=== PATIENT | male | born 1950 | race Caucasian/White ===

== ENCOUNTER 2021-05-19 07:37 | Emergency (ER) | payer OTHER ==
--- OUTSIDE RECORDS SUMMARY | 2021-05-19 07:42 | XMS REPORT | Continuity of Care Document ---
:1950 Author Organization [facility] Address [address] [place] [address] Dr. Orozco [address] [place] [id number] Care Team Providers Name Role Phone Unavailable Unavailable Unavailable Problems This patient has no known problems. Allergies, Adverse Reactions, Alerts This patient has no known allergies or adverse reactions. Medications This patient has no known medications. Procedures This patient has no known procedures. Results This patient has no known results.
[2021-05-19 08:13] LABS: Urine Blood Trace-intact (Negative); Urine Glucose Negative (Negative); Urine Protein 1+ (Negative); Urine pH 7.5 (5.0-7.0)
--- NOTE | 2021-05-19 08:43 | RAD REPORT ---
EXAM DESCRIPTION: CT - Stone Protocol - 05/19/2021 8:01 am CLINICAL HISTORY: Flank pain. FLANK PAIN COMPARISON: No comparisons TECHNIQUE: Axial images were obtained without oral or IV contrast. Lack of contrast limits solid org an and vascular assessment. The [id number] spans the entirety of the system partially obscuring uppermost abdomen and lung bases. Coronal reformatted images were obtained and reviewed. All CT scans are performed using dose optimization technique as appropriate and may include automated exposure control or mA/KV adjustment according to patient size. FINDINGS: The lower lung cardoza are clear. Cholecystectomy. Imaged portions of the liver and spleen show no suspicious findings on non-contrast imaging. The panc reas and adrenal glands are normal. No pathologic lymphadenopathy in the abdomen or pelvis. 2 mm calculus is present mid right ureter resulting in mild right hydronephrosis. No left-sided urina ry tract stone or obstructive uropathy. No bowel obstruction, free air, free fluid or abscess. Sigmoid diverticulosis coli is present without diverticulitis.Normal appendix. Mild diffuse lumbar spondylosis is present. Mild enlargement of prostate gland is present. IMPRESSION: 2 mm calculus mid right ureter resulting in mild right hydronephrosis. Sigmoid diverticulosis coli is present without diverticulitis.
--- NOTE | 2021-05-19 08:53 | ER ---
Nurse's Notes [facility] Name: Edward Willams Age: 70 yrs Sex: Male : 1950 Arrival Date: 05/19/2021 Time: 07:39 Bed 19 Private MD: Curtis David E Diagnosis: Hydronephrosis with renal and ureteral calculous obstruction Presentation: 05/19 07:52 Chief complaint: Patient states: R lower back and flank pain, difficulty urinating, N/V ph that started early this morning. Reports distant hx of kidney stones and states that this feels similar. Coronavirus screen: Client denies travel out of the [place] in the last 14 days. Ebola Screen: No symptoms or risks identified at this time. Initial Sepsis Screen: Does the patient meet any 2 criteria? No. Patient's initial sepsis screen is negative. Does the patient have a suspected source of infection? No. Patient's initial sepsis screen is negative. Risk Assessment: Do you want to hurt yourself or someone else? Patient reports no desire to harm self or others. Onset of symptoms was May 19, 2021. 07:52 Method Of Arrival: Ambulatory ph 07:52 Acuity: AZALIA 3 ph Historical: - Allergies: 07:54 Morphine; ph - Home Meds: 08:01 aspirin 81 mg Oral chew 1 tab once daily [Active]; atorvastatin 10 mg oral tab 1 tab ph once daily [Active]; amlodipine 10 mg tab 1 tab once daily [Active]; tamsulosin 0.4 mg oral cap 1 cap once daily [Active]; Centrum Silver Men oral [Active]; Vitamin D Oral 2000 unit daily [Active]; PreserVision AREDS-2 250-90-40-1 mg oral cap daily [Active]; - PMHx: 08:01 Hypertensive disorder; Hypercholesterolemia; ph - Immunization history:: Client reports receiving the 2nd dose of the Covid vaccine. - Social history:: Smoking status: Patient reports the use of cigarette tobacco products, smokes one pack cigarettes per day. Screenin:52 Abuse screen: Denies threats or abuse. Nutritional screening: No deficits noted. rb3 Tuberculosis screening: No symptoms or risk factors identified. Fall Risk None identified. Assessment: 07:52 General: Appears in no apparent distress. Behavior is calm, cooperative. Pain: rb3 Complains of pain in right mid back Pain radiates to right side and groin Pain currently is 7 out of 10 on a pain scale. Pain began 0500 this morning. Neuro: Level of Consciousness is awake, alert, obeys commands, Oriented to person, place, time, situation. Cardiovascular: Patient's skin is warm and dry. Respiratory: Airway is patent Respiratory effort is even, unlabored, Respiratory pattern is regular, symmetrical. GI: No signs and/or symptoms were reported involving the gastrointestinal system. : Denies burning with urination. 08:43 Reassessment: Patient appears in no apparent distress at this time. No changes from rb3 previously documented assessment. 09:09 Reassessment: discharge pending due to IV fluids infusing. rb3 10:00 Reassessment: Patient appears in no apparent distress at this time. IV fluids infusing. rb3 10:00 Reassessment: Patient appears in no apparent distress at this time. Patient and/or rb3 family updated on plan of care and expected duration. Pain level reassessed. Patient is alert, oriented x 3, equal unlabored respirations, skin warm/dry/pink. Vital Signs: 07:52 BP 149 / 97; Pulse 85; Resp 18; Temp 98.0; Pulse Ox 99% on R/A; Weight 102.06 kg; ph Height 5 ft. 10 in. (177.80 cm); Pain 8/10; 08:43 BP 124 / 84; Pulse 75; Resp 16; Pulse Ox 97% ; rb3 09:42 BP 126 / 83; Pulse 70; Resp 16; Pulse Ox 95% ; rb3 10:27 BP 135 / 74; Pulse 66; Resp 17; Pulse Ox 96% ; rb3 07:52 Body Mass Index 32.28 (102.06 kg, 177.80 cm) ph ED Course: 07:39 Patient arrived in ED. am2 07:40 Curtis David MD is Private Physician. am2 07:46 Todd Chapman MD is Attending Physician. nydia 07:47 Libby Ledbetter, ROXANNE is Primary Nurse. rb3 07:52 Patient has correct armband on for positive identification. Bed in low position. Call rb3 light in reach. Side rails up X 1. Pulse ox on. NIBP on. Warm blanket given. 07:54 Triage completed. ph 07:54 Arm band placed on Patient placed in an exam room, on a stretcher. ph 08:00 CT Stone Protocol In Process Unspecified. EDMS 08:30 Inserted saline lock: 18 gauge in right wrist, using aseptic technique. Blood collected.tr6 08:40 Bladder scan completed. 98cc. mh5 08:51 Curtis David MD is Referral Physician. [facility] 08:51 Augusto Ribeiro MD is Referral Physician. nydia 10:27 No provider procedures requiring assistance completed. IV discontinued, intact, rb3 bleeding controlled, No redness/swelling at site. Pressure dressing applied. Administered Medications: 08:35 Drug: NS 0.9% 1000 ml Route: IV; Rate: 125 ml/hr; Site: right wrist; rb3 09:09 Follow up: Order changed to bolus rb3 09:08 Drug: Ketorolac 30 mg Route: IVP; Site: right wrist; rb3 09:30 Follow up: Response: No adverse reaction; Pain is decreased rb3 09:08 Drug: Zofran (Ondansetron) 4 mg Route: IVP; Site: right wrist; rb3 09:30 Follow up: Response: No adverse reaction rb3 09:08 Drug: Rocephin (cefTRIAXone) 1 grams Route: IV; Rate: per protocol; Site: right wrist; rb3 09:30 Follow up: Response: No adverse reaction; IV Status: Completed infusion rb3 09:09 Drug: NS 0.9% 1000 ml Route: IV; Rate: 1 bolus; Site: right wrist; rb3 10:21 Follow up: IV Status: Completed infusion rb3 Intake: Outcome: 08:52 Discharge ordered by . nydia 10:27 Patient left the ED. rb3 10:27 Discharged to home ambulatory, with family. rb3 10:27 Condition: stable 10:27 Discharge instructions given to patient, Instructed on discharge instructions, follow up and referral plans. medication usage, Demonstrated understanding of instructions, follow-up care, medications, Prescriptions given X 4. Signatures: Dispatcher [employer] EDLA Todd Chapman MD MD cha Hall, Patricia RN RN Sharmaine Gottlieb 5 Kyra Paulino am2 Libby Ledbetter RN RN rb3 Marie Nielsen RN RN tr6 Corrections: (The following items were deleted from the chart) 07:54 07:54 Allergies: No Known Allergies; ph ph
--- NOTE | 2021-05-19 08:53 | EDPHYS ---
Physician Documentation [facility] Name: Edward Willams Age: 70 yrs Sex: Male : 1950 Arrival Date: 05/19/2021 Time: 07:39 Bed 19 Private MD: Curtis David E ED Physician Todd Chapman HPI: 05/19 08:48 This 70 yrs old Male presents to ER via Ambulatory with complaints of Flank nydia Pain, Urinary Retention. 08:48 The patient complains of pain in the right mid back and right low back. The pain nydia radiates to the right mid back and right low back. Onset: The symptoms/episode began/occurred this morning, today. Modifying factors: The symptoms are alleviated by nothing. the symptoms are aggravated by nothing. Severity of pain: At its worst the pain was mild. The patient has experienced a previous episode, many years ago. Historical: - Allergies: 07:54 Morphine; ph - Home Meds: 08:01 aspirin 81 mg Oral chew 1 tab once daily [Active]; atorvastatin 10 mg oral tab 1 tab ph once daily [Active]; amlodipine 10 mg tab 1 tab once daily [Active]; tamsulosin 0.4 mg oral cap 1 cap once daily [Active]; Centrum Silver Men oral [Active]; Vitamin D Oral 2000 unit daily [Active]; PreserVision AREDS-2 250-90-40-1 mg oral cap daily [Active]; - PMHx: 08:01 Hypertensive disorder; Hypercholesterolemia; ph - Immunization history:: Client reports receiving the 2nd dose of the Covid vaccine. - Social history:: Smoking status: Patient reports the use of cigarette tobacco products, smokes one pack cigarettes per day. ROS: 08:49 Constitutional: Negative for fever, chills, and weight loss, Eyes: Negative for injury, nydia pain, redness, and discharge, ENT: Negative for injury, pain, and discharge, Neck: Negative for injury, pain, and swelling, Cardiovascular: Negative for chest pain, palpitations, and edema, Respiratory: Negative for shortness of breath, cough, wheezing, and pleuritic chest pain, : Negative for injury, bleeding, discharge, and swelling, MS/Extremity: Negative for injury and deformity, Skin: Negative for injury, rash, and discoloration, Neuro: Negative for headache, weakness, numbness, tingling, and seizure, Psych: Negative for depression, anxiety, suicide ideation, homicidal ideation, and hallucinations, Allergy/Immunology: Negative for hives, rash, and allergies, Endocrine: Negative for neck swelling, polydipsia, polyuria, polyphagia, and marked weight changes, Hematologic/Lymphatic: Negative for swollen nodes, abnormal bleeding, and unusual bruising. 08:49 Abdomen/GI: Positive for abdominal pain, of the right lower quadrant. 08:49 Back: Positive for flank pain, on the right. Exam: 08:49 Constitutional: This is a well developed, well nourished patient who is awake, alert, nydia and in no acute distress. Head/Face: Normocephalic, atraumatic. Eyes: Pupils equal round and reactive to light, extra-ocular motions intact. Lids and lashes normal. Conjunctiva and sclera are non-icteric and not injected. Cornea within normal limits. Periorbital areas with no swelling, redness, or edema. ENT: Nares patent. No nasal discharge, no septal abnormalities noted. Tympanic membranes are normal and external auditory canals are clear. Oropharynx with no redness, swelling, or masses, exudates, or evidence of obstruction, uvula midline. Mucous membranes moist. Neck: Trachea midline, no thyromegaly or masses palpated, and no cervical lymphadenopathy. Supple, full range of motion without nuchal rigidity, or vertebral point tenderness. No Meningismus. Chest/axilla: Normal chest wall appearance and motion. Nontender with no deformity. No lesions are appreciated. Cardiovascular: Regular rate and rhythm with a normal S1 and S2. No gallops, murmurs, or rubs. Normal PMI, no JVD. No pulse deficits. Respiratory: Lungs have equal breath sounds bilaterally, clear to auscultation and percussion. No rales, rhonchi or wheezes noted. No increased work of breathing, no retractions or nasal flaring. Abdomen/GI: Soft, non-tender, with normal bowel sounds. No distension or tympany. No guarding or rebound. No evidence of tenderness throughout. Male : Normal genitalia with no discharge or lesions. Skin: Warm, dry with normal turgor. Normal color with no rashes, no lesions, and no evidence of cellulitis. MS/ Extremity: Pulses equal, no cyanosis. Neurovascular intact. Full, normal range of motion. Neuro: Awake and alert, GCS 15, oriented to person, place, time, and situation. Cranial nerves II-XII grossly intact. Motor strength 5/5 in all extremities. Sensory grossly intact. Cerebellar exam normal. Normal gait. Psych: Awake, alert, with orientation to person, place and time. Behavior, mood, and affect are within normal limits. 08:49 Back: pain, that is mild, ROM is normal, normal spinal alignment noted, CVA tenderness, that is mild, vertebral tenderness, is not appreciated, muscle spasm, is not present. Vital Signs: 07:52 BP 149 / 97; Pulse 85; Resp 18; Temp 98.0; Pulse Ox 99% on R/A; Weight 102.06 kg; ph Height 5 ft. 10 in. (177.80 cm); Pain 8/10; 08:43 BP 124 / 84; Pulse 75; Resp 16; Pulse Ox 97% ; rb3 09:42 BP 126 / 83; Pulse 70; Resp 16; Pulse Ox 95% ; rb3 10:27 BP 135 / 74; Pulse 66; Resp 17; Pulse Ox 96% ; rb3 07:52 Body Mass Index 32.28 (102.06 kg, 177.80 cm) ph MDM: 07:47 Patient medically screened. nydia 08:50 Differential diagnosis: nephrolithiasis, pyelonephritis, UTI, cholecystitis, nydia Cholelithiasis, diverticulitis. Data reviewed: vital signs, nurses notes, lab test result(s), radiologic studies, CT scan. 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 Counseling: I had a detailed discussion with the patient and/or guardian regarding: the historical points, exam findings, and any diagnostic results supporting the discharge/admit diagnosis, lab results, radiology results, the need for outpatient follow up, for definitive care, a family practitioner, a urologist. 05/19 07:47 Order name: Basic Metabolic Panel [facility] 05/19 07:47 Order name: CBC with Diff [facility] 05/19 07:47 Order name: Hepatic Function [facility] 05/19 07:47 Order name: Lipase [facility] 05/19 07:47 Order name: Urine Culture [facility] 05/19 08:12 Order name: Urine Dipstick-Ancillary; Complete Time: 08:33 EDMS 05/19 07:47 Order name: IV Saline Lock; Complete Time: 08:30 [facility] 05/19 07:47 Order name: CT Stone Protocol; Complete Time: 08:47 [facility] 05/19 10:12 Order name: Manual Differential [facility] 05/19 07:47 Order name: Labs collected and sent; Complete Time: 08:30 [facility] 05/19 07:47 Order name: Bladder Scanner: note PVR; Complete Time: 08:40 [facility] 05/19 07:47 Order name: Urine Dipstick-Ancillary (obtain specimen); Complete Time: 08:13 [facility] 05/19 08:45 Order name: Labs - recollect needed: CBC, chemistry; Complete Time: 09:35 iw Administered Medications: 08:35 Drug: NS 0.9% 1000 ml Route: IV; Rate: 125 ml/hr; Site: right wrist; rb3 09:09 Follow up: Order changed to bolus rb3 09:08 Drug: Ketorolac 30 mg Route: IVP; Site: right wrist; rb3 09:30 Follow up: Response: No adverse reaction; Pain is decreased rb3 09:08 Drug: Zofran (Ondansetron) 4 mg Route: IVP; Site: right wrist; rb3 09:30 Follow up: Response: No adverse reaction rb3 09:08 Drug: Rocephin (cefTRIAXone) 1 grams Route: IV; Rate: per protocol; Site: right wrist; rb3 09:30 Follow up: Response: No adverse reaction; IV Status: Completed infusion rb3 09:09 Drug: NS 0.9% 1000 ml Route: IV; Rate: 1 bolus; Site: right wrist; rb3 10:21 Follow up: IV Status: Completed infusion rb3 Disposition Summary: 05/19/21 08:52 Discharge Ordered Location: Home nydia Problem: new nydia Symptoms: have improved nydia Condition: Stable nydia Diagnosis - Hydronephrosis with renal and ureteral calculous obstruction nydia Followup: nydia - With: Curtis David MD - When: 2 - 3 days - Reason: Recheck today's complaints, Continuance of care, Re-evaluation by your physician Followup: nydia - With: Augusto Ribeiro MD - When: 2 - 3 days - Reason: Recheck today's complaints, Re-evaluation by your physician Discharge Instructions: - Discharge Summary Sheet nydia - Kidney Stones nydia - Kidney Stones, [id number] nydia - Hydronephrosis nydia - Dietary Guidelines to Help Prevent Kidney Stones nydia Forms: - Medication Reconciliation Form [facility] - Thank You Letter nydia - Antibiotic Education nydia - Prescription Opioid Use nydia Prescriptions: - Flomax 0.4 mg Oral capsule - take 1 capsule by ORAL route once daily 1/2 hour following the same meal each [facility] day; 20 capsule; Refills: 0, Product Selection Permitted - Zofran 4 mg Oral Tablet - take 1 tablet by ORAL route every 12 hours As needed; 20 tablet; Refills: 0, [facility] Product Selection Permitted - Cipro 500 mg Oral Tablet - take 1 tablet by ORAL route every 12 hours for 7 days; 14 tablet; Refills: 0, [facility] Product Selection Permitted - Tramadol 50 mg Oral Tablet - take 1 tablet by ORAL route every 8 hours as needed; 24 tablet; Refills: 0, [facility] Product Selection Permitted Signatures: Dispatcher [employer] Todd Price MD MD cha Williams, Irene, RN RN Susu Yee RN RN ph Barber, Rebecca RN RN rb3 Corrections: (The following items were deleted from the chart) 07:54 07:54 Allergies: No Known Allergies; ph ph
[2021-05-19] MEDS ORDERED: NA CHLORIDE 0.9% 1,000 ML ONE (08:56)
[2021-05-19] MEDS ORDERED: ONDANSETRON 4 MG/2 ML VIAL ONE (09:21)
[2021-05-19] MEDS ORDERED: CEFTRIAXONE/SWI 1gm 1 GM/10 ML SYR ONE (09:22)
[2021-05-19] MEDS ORDERED: KETOROLAC 30 MG/ML INJ ONE (09:22)
[2021-05-19 09:58] LABS: Absolute Lymphocytes (CBC) 0.9 K/uL (0.7-4.9); Basophils % 0.8 % (0-1.3); Hematocrit 49.9 % (39.6-49.0); Lymphocytes % 8.7 % (15.3-44.8); MPV 11.4 fL (7.6-11.3); RBC Red Blood Cell Count 5.29 M/uL (4.33-5.43)
[2021-05-19 10:08] LABS: Albumin 3.7 g/dL (3.4-5.0); Bilirubin Direct 0.2 mg/dL (0-0.2); Bilirubin Total 0.5 mg/dL (0.2-1.0); Potassium 3.4 mmol/L (3.5-5.1); Protein, Total 7.4 g/dL (6.4-8.2)
[2021-05-19 10:12] LABS: Blood Morphology Comment NOT SEEN (NOT SEEN); Platelet Estimate ADEQ
[2021-05-19 10:13] LABS: Platelets, Giant NOTED
[2021-05-19 10:34] VITALS: TEMP 98
[2021-05-19 10:38] VITALS: BP 135/74; O2SAT 96
== END 2021-05-19 10:27 | disposition home or self-care (01) ==
LOC: ER 07:37
DX: N13.2 Hydronephrosis with renal and ureteral calculous obstruction (principal); I10 Essential (primary) hypertension; E78.00 Pure hypercholesterolemia, unspecified; F17.210 Nicotine dependence, cigarettes, uncomplicated; Z79.82 Long term (current) use of aspirin; Z88.5 Allergy status to narcotic agent
CPT/HCPCS: 96365; 96361; 85025; 87086; 80048; 36415; 80076; 81003; 83690; 76377; 74176; 96375; 99284; J0696; J7030; J2405; 87088

== ENCOUNTER 2024-02-07 07:30 | Day surgery (SDC) | payer OTHER ==
[2024-02-06 14:37] LABS: Absolute Basophils 0.2 K/uL (0-0.5); Absolute Eosinophils 0.4 K/uL (0-0.5); Absolute Lymphocytes (CBC) 2.9 K/uL (0.7-4.9); Absolute Monocytes 1.2 K/uL (0.1-1.3); Absolute Neutrophil 4.6 K/uL (1.8-8.0); Basophils % 2.2 % (0-1.3); Eosinophils % 3.9 % (0-4.4); Hematocrit 50.4 % (39.6-49.0); Hemoglobin 17.1 g/dL (13.6-17.9); Lymphocytes % 31.4 % (15.3-44.8); MCH 32.6 pg (27.0-35.0); MCV 95.8 fL (80-100); MPV 9.9 fL (7.6-11.3); Monocytes % 13.3 % (3.3-12.3); Neutrophils % 49.2 % (41.7-73.7); Nucleated Red Blood Cells % 0.3 % (0-0); Platelets 194 thou/uL (152-406); RBC Red Blood Cell Count 5.26 M/uL (4.33-5.43); Red Cell Distribution Width 14.3 % (12.1-15.2)
--- NOTE | 2024-02-06 14:56 | RAD REPORT ---
EXAM DESCRIPTION: Luis Manuel Single View02/06/2024 2:11 pm CLINICAL HISTORY: Preop for catheterization. Hypertension COMPARISON: 2021 FINDINGS: The lungs appear clear of acute infiltrate. The heart is normal size IMPRESSION: No acute abnormalities displayed
[2024-02-06 15:14] LABS: Blood Morphology Comment NOT SEEN (NOT SEEN); Platelet Estimate ADEQ; Platelets, Giant PRESENT; White Blood Cell Scan OK (OK)
[2024-02-06 15:35] LABS: PT Prothrombin Time 10.9 SECONDS (9.5-12.5); PTT, Activated Partial Thromb 36.2 SECONDS (24.3-36.9); Protime INR 0.99
[2024-02-06 15:45] LABS: Anion Gap 7.1 mEq/L (5.0-15.0); Potassium 3.1 mEq/L (3.5-5.1)
[2024-02-07] MEDS ORDERED: NA CHLORIDE 0.9% 500 ML ONE (08:04)
[2024-02-07 08:34] VITALS: BP 139/75; TEMP 97.5; O2SAT 100
== END 2024-02-07 10:27 | disposition home or self-care (01) ==
LOC: CCL 07:30
PROVIDERS: ATTEND Internal Medicine
DX: R94.39 Abnormal result of other cardiovascular function study (principal); R07.9 Chest pain, unspecified; Z53.9 Procedure and treatment not carried out, unspecified reason; I10 Essential (primary) hypertension; E78.5 Hyperlipidemia, unspecified; Z82.49 Family history of ischemic heart disease and other diseases of the circulatory system; F17.210 Nicotine dependence, cigarettes, uncomplicated; I73.9 Peripheral vascular disease, unspecified; Z79.82 Long term (current) use of aspirin; Z79.899 Other long term (current) drug therapy
CPT/HCPCS: 85025; 80048; 36415; 83721; 85610; 82947; 85730; 71045; J7040

== ENCOUNTER 2024-02-21 07:00 | Day surgery (SDC) | payer OTHER ==
[2024-02-21] MEDS ORDERED: NA CHLORIDE 0.9% 500 ML ONE (07:31)
[2024-02-21] MEDS ORDERED: HEPA 1000U/500MLS 2,000 UNIT/1,000 ML BAG IV ONE (07:46)
[2024-02-21] MEDS ORDERED: LIDOCAINE 1% 20 ML MDV ONE (07:47)
[2024-02-21] MEDS ORDERED: HEPARIN 5000 UNIT/ML 1 ML VIAL ONE (07:47)
[2024-02-21] MEDS ORDERED: VERAPAMIL HCL 10 MG/4 ML VIAL IV ONE (08:02)
[2024-02-21] MEDS ORDERED: MIDAZOLAM HCL 2 MG/2 ML INJ ONE (08:02)
[2024-02-21] MEDS ORDERED: FENTANYL CITR 100 MCG/2 ML ONE (08:02)
[2024-02-21] MEDS ORDERED: HEPARIN 10,000 UNIT/10 ML VIAL IV ONE (08:03)
[2024-02-21] MEDS ORDERED: ATROPINE SULF 1 MG/10 ML SYR IV ONE (08:03)
[2024-02-21 10:08] VITALS: O2SAT 95
[2024-02-21 10:50] VITALS: BP 117/78
--- NOTE | 2024-02-21 16:27 | OP ---
Date of Procedure: 02/21/2024 Surgeon: Antione Horowitz Procedures Performed: 1.Left heart catheterization. 2.Selective coronary angiogram. Indication For Procedure: Unstable angina and abnormal stress test. Complications: None. Estimated Blood Loss: Less than 50 cc. Sedation Time: 30 minutes. Description Of Procedure: After risks and benefits and alternatives were explained to the patient, priscilla nadia agreed to proceed with the procedure and signed informed consent. The patient was brought to the ear mold laboratory technician and draped and prepped in sterile fashion. A time-out was performed. Sedation was admi nistered and the right radial access sheath was obtained using 6-Ukrainian sheath. Next, [place] 4.0 5-Fr ench catheter was advanced over a J-wire to the left ventricular cavity. LVEDP was obtained. Pullba ck did not show any gradient. Same catheter was used for selective angiograms of the left and right coronary systems. At the end of the procedure, [place] was pulled back to do selective angiograms of t he left subclavian and the WATERS artery. At end of procedures, catheter was removed over a J-wire and the sheath was removed and the access was closed with a TR band. The patient was moved back to [facility] in stable condition. Findings: 1.Left main is normal. 2.LAD, mid 70% disease and mild LI. 3.Diagonal, large proximal 70% disease and mild LI. 4.Left circ, mild LI, distal 70% disease, small. OM1 has mild luminal irregularities. 5.RCA; large, dominant, proximal 80% disease and mild luminal irregularities. RPDA and RPLV, mild L I. 6.Left subclavian/WATERS patent. Assessment And Plan: Significant 3-vessel disease including LAD, diagonal, and RCA. Plan will be to consult CT Surgery to evaluate for a bypass and continue medical management at this p oint. DAILY/MODL Voice ID: [id number] Report ID: [id number]
== END 2024-02-21 10:30 | disposition home or self-care (01) ==
LOC: CCL 07:00
PROVIDERS: ATTEND Internal Medicine
DX: I25.110 Atherosclerotic heart disease of native coronary artery with unstable angina pectoris (principal); I10 Essential (primary) hypertension; E78.5 Hyperlipidemia, unspecified; E78.00 Pure hypercholesterolemia, unspecified; F17.210 Nicotine dependence, cigarettes, uncomplicated; Z88.0 Allergy status to penicillin; Z88.5 Allergy status to narcotic agent; Z82.49 Family history of ischemic heart disease and other diseases of the circulatory system
CPT/HCPCS: 93458; 76937; C1893; Q9966; J1644; J2001; J2250; J3010; J7040; 99152; 99153; J0461